=== PATIENT | female | born 1970 | race Two or more races ===

== ENCOUNTER 2020-03-03 06:35 | Day surgery (SDC) | payer OTHER ==
[~2020-03-03 06:35] MED LIST: SIMVASTATIN5 MG PO; ZESTRIL10 M1 PO
[2020-03-03] MEDS ORDERED: KETO10TA2 PO (10:39)
[2020-03-03] MEDS ORDERED: RECTICARE30 GM TOP (10:40)
[2020-03-03] MEDS ORDERED: PERCOCET 5-3251 EACH PO (10:40)
== END 2020-03-03 15:50 | disposition home or self-care (01) ==
LOC: CIR.AMB 06:35
DX: K64.4 Residual hemorrhoidal skin tags (principal); K64.8 Other hemorrhoids